=== PATIENT | female | born 2000 | race American Indian/Alaskan Native ===

== ENCOUNTER 2021-12-31 00:14 | Outpatient (CLI) | payer MEDICAID ==
[2021-12-31] MEDS ORDERED: LACTATED RINGERS 500 ML IV ONE (00:35)
[2021-12-31 01:02] VITALS: BP 137/86
[2021-12-31 02:11] LABS: Bacteria,Urine 2+ /HPF (Negative); Bilirubin,Urine NEG (Negative); Blood,Urine NEG (Negative); Color,Urine Yellow (Yellow); Hyaline Casts,Urine 1 /LPF; Mucus,Urine FEW /HPF; Protein,Urine <15 mg/dL mg/dL (Negative); Urobilinogen,Urine < 2.0 mg/dL (<2.0)
--- NOTE | 2021-12-31 03:25 | Ultrasound Report ---
ULTRASOUND OBSTETRIC LIMITED INDICATION / CLINICAL INFORMATION: placenta abruption. Clinical Gestational Age (GA) in weeks, days: 34 weeks 6 days TECHNIQUE: Transabdominal. COMPARISON: None available. FINDINGS: HEART RATE (beats per minute): 149 AMNIOTIC FLUID INDEX (cm) = not measured (normal = 7-24 cm) PRESENTATION: Cephalic. ADDITIONAL FINDINGS: Placenta is fundal in location. No abruption identified. IMPRESSION: 1. Viable IUP in a cephalic presentation. 2. Placenta is unremarkable and without findings to suggest abruption. Signer Name: Corinna Oconnor MD Signed: 12/31/2021 3:21 AM Workstation Name: [id number]
== END 2021-12-31 05:55 | disposition home or self-care (01) ==
LOC: TRG 00:14 → APU 00:18 → TRG 05:55
PROVIDERS: ATTEND Obstetrics & Gynecology
DX: O26.893 Other specified pregnancy related conditions, third trimester (principal); Z3A.34 34 weeks gestation of pregnancy; W10.9XXA Fall (on) (from) unspecified stairs and steps, initial encounter
CPT/HCPCS: 76815; 81001; 87086

== ENCOUNTER 2022-01-17 10:41 | Outpatient (CLI) | payer MEDICAID ==
[2022-01-17 11:29] LABS: Hematocrit 28.3 % (30.3-42.9); Hemoglobin 9.2 gm/dl (10.1-14.3); Mean Corpuscular HGB Conc 33 % (30-34); Mean Corpuscular Volume 81 fl (79-97); Platelet Count 349 K/mm3 (140-440); Red Blood Count 3.47 M/mm3 (3.65-5.03); Red Cell Distribution Width 14.6 % (13.2-15.2)
[2022-01-17 11:31] LABS: Bilirubin,Urine NEG (Negative); Blood,Urine NEG (Negative); Color,Urine Yellow (Yellow); Mucus,Urine FEW /HPF; RBC,Urine < 1.0 /HPF (0.0-6.0); Urobilinogen,Urine < 2.0 mg/dL (<2.0)
[2022-01-17 11:47] LABS: Alanine Aminotransferase 10 units/L (7-56); Uric Acid 3.7 mg/dL (3.5-7.6)
[2022-01-17 12:50] VITALS: BP 145/78
== END 2022-01-17 12:53 | disposition home or self-care (01) ==
LOC: TRG 10:41 → APU 10:42 → TRG 12:53
PROVIDERS: ATTEND Obstetrics & Gynecology
DX: O13.3 Gestational [pregnancy-induced] hypertension without significant proteinuria, third trimester (principal); Z3A.37 37 weeks gestation of pregnancy
CPT/HCPCS: 36415; 59025; 81001; 82565; 83615; 84450; 84460; 84550; 85027; 86592; 86850; 86900; 86901

== ENCOUNTER 2022-01-21 12:11 | Inpatient (IN) | payer MEDICAID ==
[2022-01-21] MEDS ORDERED: ACETAMINOPHEN 325 MG TAB PO PRN (14:54)
[2022-01-21] MEDS ORDERED: NalbUPHINE 10 MG/1 ML INJ IV PRN (14:54)
[2022-01-21] MEDS ORDERED: miSOPROStol 200 MCG TAB PR PRN (14:54)
[2022-01-21] MEDS ORDERED: TERBUTALINE 1 MG/1 ML INJ SUB-Q PRN (14:54)
[2022-01-21] MEDS ORDERED: CARBOPROST TROMETHAMINE 250 MCG/1 ML INJ IM PRN (14:54)
[2022-01-21] MEDS ORDERED: OXYTOCIN 10 UNIT/1 ML INJ IM PRN (14:54)
[2022-01-21] MEDS ORDERED: MINERAL OIL 30 ML ORAL LIQD PO PRN (14:54)
[2022-01-21] MEDS ORDERED: METHYLERGONOVINE MALEATE 0.2 MG/ML VIAL IM PRN (14:54)
[2022-01-21] MEDS ORDERED: ONDANSETRON 4 MG/2 ML INJ IV PRN (14:54)
[2022-01-21] MEDS ORDERED: LOPERAMIDE 2 MG CAP PO PRN (14:54)
[2022-01-21] MEDS ORDERED: LIDOCAINE (2%) 20 MG/1 ML VIAL 20 ML MDV INFILTRATI ONE (14:54)
[2022-01-21] MEDS ORDERED: OXYTOCIN DRIP 30 UNITS/500 ML BAG IV SCH ×2 (15:00)
[2022-01-21 16:33] LABS: Hematocrit 27.5 % (30.3-42.9); Hemoglobin 9.2 gm/dl (10.1-14.3); Mean Corpuscular HGB Conc 33 % (30-34); Mean Corpuscular Volume 82 fl (79-97); Platelet Count 341 K/mm3 (140-440); Red Blood Count 3.35 M/mm3 (3.65-5.03); Red Cell Distribution Width 15.5 % (13.2-15.2)
[2022-01-21 16:49] LABS: Alanine Aminotransferase 6 units/L (7-56); Uric Acid 3.8 mg/dL (3.5-7.6)
[2022-01-21] MEDS ORDERED: DINOPROSTONE 10 MG VAG SUPP VG ONE (17:00)
[2022-01-21 17:04] LABS: Bacteria,Urine 1+ /HPF (Negative); Bilirubin,Urine NEG (Negative); Blood,Urine NEG (Negative); Color,Urine Yellow (Yellow); Mucus,Urine 3+ /HPF; Urobilinogen,Urine < 2.0 mg/dL (<2.0)
[2022-01-21] MEDS ORDERED: MAGNESIUM SULFATE 4 GM/100 ML BAG IV ONE (20:43)
[2022-01-21] MEDS ORDERED: hydrALAZINE 20 MG/1 ML INJ IV PRN (20:49)
[2022-01-21] MEDS: LACTATED RINGERS 1,000 ML IV SCH (21:06)
[2022-01-21] MEDS: MAGNESIUM SULFATE 40GM/1000ML 40 GM/1,000 ML BAG IV SCH (21:50)
[2022-01-22] MEDS: BUTORPHANOL 2 MG/1 ML INJ IV PRN ×2 (00:17→04:03)
[2022-01-22] MEDS: LACTATED RINGERS 1,000 ML IV SCH (09:18)
[2022-01-22] MEDS: fentaNYL 100 MCG/2 ML INJ IV PRN ×2 (15:16→18:40)
[2022-01-22] MEDS: MAGNESIUM SULFATE 40GM/1000ML 40 GM/1,000 ML BAG IV SCH (17:38)
--- NOTE | 2022-01-22 17:50 | History and Physical Report ---
History of Present Illness Date of examination: 01/22/22 Date of admission: 01/21/22 14:54 Chief complaint: Induction of labor History of present illness: 21-year-old G1, P0 at 38+0 weeks who presents for induction of labor secondary to elevated blood pressures and persistent headache consistent with preeclampsia. The patient initiated care in the first trimester her . Her course is complicated by obesity. GBS is negative. Past History Past Medical History: no pertinent history Past Surgical History: no surgical history Social history: single - Obstetrical History Expected Date of Delivery: 02/05/22 Actual Gestation: 38 Week(s) 0 Day(s) : 1 Para: 0 Hx # Term Pregnancies: 0 Number of Pregnancies: 0 Spontaneous Abortions: 0 Induced : 0 Number of Living Children: 0 Medications and Allergies Allergies Allergy/AdvReac Type Severity Reaction Status Date / Time No Known Allergies Allergy Verified 12/31/21 00:34 Home Medications Medication Instructions Recorded Confirmed Last Taken Type Vitamin 1 tab PO DAILY 01/21/22 01/21/22 Unknown History Active Meds: Active Medications Acetaminophen (Acetaminophen 325 Mg Tab) 650 mg PO Q4H PRN PRN Reason: Pain, Mild (1-3) Butorphanol Tartrate (Butorphanol 2 Mg/1 Ml Inj) 2 mg IV Q2H PRN PRN Reason: Pain , Severe (7-10) Last Admin: 01/22/22 04:03 Dose: 2 mg Carboprost Tromethamine (Carboprost Tromethamine 250 Mcg/1 Ml Inj) 250 mcg IM ONCE PRN PRN Reason: Uterine Bleeding Ephedrine Sulfate (Ephedrine Sulfate 50 Mg/1 Ml Inj) 10 mg IV Q2M PRN PRN Reason: Hypotension Fentanyl (Fentanyl 100 Mcg/2 Ml Inj) 100 mcg IV Q2H PRN PRN Reason: Pain,Severe (7-10) LABOR PAIN Last Admin: 01/22/22 15:16 Dose: 100 mcg Hydralazine HCl (Hydralazine 20 Mg/1 Ml Inj) 20 mg IV Q4HR PRN PRN Reason: Blood Pressure Oxytocin/Sodium Chloride (Pitocin/Ns 30 Unit/500ml) 30 units in 500 mls @ 2 mls/hr IV TITR CHELLE; Protocol Last Titration: 01/22/22 17:35 Dose: 6 mls/hr Lactated Ringer's (Lactated Ringers) 1,000 mls @ 125 mls/hr IV DIRECT CHELLE Last Admin: 01/22/22 09:18 Dose: 125 mls/hr Oxytocin/Sodium Chloride (Pitocin/Ns 30 Unit/500ml) 30 units in 500 mls @ 40 mls/hr IV TITR CHELLE; Protocol Magnesium Sulfate (Magnesium Sulfate 40gm/1000ml) 40 gm in 1,000 mls @ 50 mls/hr IV DIRECT CHELLE Last Admin: 01/21/22 21:50 Dose: 2 gm/hr, 50 mls/hr Loperamide HCl (Loperamide 2 Mg Cap) 2 mg PO ONCE PRN PRN Reason: give with Hemabate Methylergonovine Maleate (Methylergonovine Maleate 0.2 Mg/Ml Vial) 0.2 mg IM ONCE PRN PRN Reason: Uterine Bleeding Mineral Oil (Mineral Oil 30 Ml Oral Liqd) 30 ml PO QHS PRN PRN Reason: Constipation Misoprostol (Misoprostol 200 Mcg Tab) 800 mcg HI ONCE PRN PRN Reason: Uterine Bleeding Nalbuphine HCl (Nalbuphine 10 Mg/1 Ml Inj) 10 mg IV Q2H PRN PRN Reason: Pain, Moderate (4-6) Ondansetron HCl (Ondansetron 4 Mg/2 Ml Inj) 4 mg IV Q8H PRN PRN Reason: Nausea And Vomiting Oxytocin (Oxytocin 10 Unit/1 Ml Inj) 10 unit IM ONCE PRN PRN Reason: Uterine Bleeding Terbutaline Sulfate (Terbutaline 1 Mg/1 Ml Inj) 0.25 mg SUB-Q ONCE PRN PRN Reason: Hyperstimulation/Hypertonicity Review of Systems All systems: negative Genitourinary: no leakage of fluid, no contractions - Vital Signs Vital signs: Vital Signs Pulse Pulse Ox 91 H 100 01/21/22 12:52 01/21/22 12:52 Temp Pulse Resp BP Pulse Ox 98.4 F 90 18 154/86 80 L 01/22/22 12:28 01/22/22 17:35 01/22/22 04:08 01/22/22 17:35 01/22/22 17:32 - Physical Exam Breasts: Positive: deferred Cardiovascular: Regular rate Lungs: Positive: Clear to auscultation Abdomen: Positive: normal appearance Results Result Diagrams: 01/21/22 14:40 01/21/22 14:40 All other labs normal. Assessment and Plan - Patient Problems (1) Preeclampsia Current Visit: Yes Status: Acute Plan to address problem: admit for induction of labor
[2022-01-22] MEDS ORDERED: ePHEDrine SULFATE 50 MG/1 ML INJ IV PRN (19:53)
[2022-01-22] MEDS ORDERED: LACTATED RINGERS 250 ML IV SOLN IV ONE (19:53)
[2022-01-22] MEDS ORDERED: diphenhydrAMINE 50 MG/ML VIAL IV PRN (19:53)
[2022-01-22] MEDS ORDERED: ONDANSETRON 4 MG/2 ML INJ IV PRN (19:53)
[2022-01-22] MEDS ORDERED: NalbUPHINE 10 MG/1 ML INJ IV PRN (19:53)
[2022-01-22] MEDS ORDERED: NALOXONE 2 MG/2 ML INJ IV PRN (19:53)
[2022-01-22] MEDS ORDERED: fentaNYL-BUPIV 2 MCG/ML-0.125% 200 MCG/100 ML BAG EPIDURAL SCH (20:00)
--- NOTE | 2022-01-22 20:26 | Anesthesia Consultation ---
Anesthesia Consult and Med Hx Date of service: 01/22/22 - Airway Anesthetic Teeth Evaluation: Good ROM Head & Neck: Adequate Mental/Hyoid Distance: Adequate Mallampati Class: Class III Intubation Access Assessment: Possibly Difficult - Pulmonary Exam CTA: Yes - Cardiac Exam Cardiac Exam: RRR - Pre-Operative Health Status ASA Pre-Surgery Classification: ASA3 Proposed Anesthetic Plan: Epidural - Pulmonary Hx Smoking: No Hx Asthma: No COPD: No Hx Pneumonia: No Hx Sleep Apnea: No - Cardiovascular System Hx Hypertension: Yes (GESTATIONAL) Hx Heart Attack/AMI: No Hx Angina: No - Central Nervous System Hx Seizures: No Hx Psychiatric Problems: No - Gastrointestinal Hx Gastroesophageal Reflux Disease: No - Endocrine Hx Renal Disease: No Hx End Stage Renal Disease: No Hx Liver Disease: No Hx Insulin Dependent Diabetes: No Hx Non-Insulin Dependent Diabetes: No Hx Hypothyroidism: No Hx Hyperthyroidism: No - Hematic Hx Anemia: No Hx Sickle Cell Disease: No - Other Systems Hx Alcohol Use: No Hx Obesity: Yes
--- NOTE | 2022-01-22 20:27 | Progress Note ---
Labor Epidural - Labor Epidural Start Time: 20:05 Stop Time: 20:17 Performed by:: TRAVIS VANG Procedure: Patient is requesting epidural for labor and pain. H&P, labs were reviewed. Patient IDed, H&P reviewed, all questions and concerns were answered, and consent was signed. Timeout was performed at bedside. Patient in sitting position. Sterile prep and drape was performed. 3ml of 1% lidocaine skin wheal at L[3]- L [4]. 17-gauge Tuohy epidural needle was advanced to loss of resistance with air technique 7cm. Negative CSF negative blood. Epidural catheter advanced to [12] centimeters. [negative] Aspiration [negative] test dose. Sterile dressing applied. Patient tolerated procedure.
[2022-01-22] MEDS: ePHEDrine SULFATE 50 MG/1 ML INJ IV PRN ×2 (21:00→21:15)
[2022-01-23] MEDS: LACTATED RINGERS 1,000 ML IV SCH (01:05)
[2022-01-23] MEDS ORDERED: WITCH HAZEL/ GLYCERIN PAD TP PRN (03:02)
[2022-01-23] MEDS ORDERED: LANOLIN/ZINC/DIMETHICONE (LANSINOH) 7 GM TP PRN (03:02)
[2022-01-23] MEDS ORDERED: MAGNESIUM HYDROXIDE (MOM) ORAL LIQD UDC PO PRN (03:02)
[2022-01-23] MEDS ORDERED: ONDANSETRON 4 MG/2 ML INJ IV PRN (03:02)
[2022-01-23] MEDS ORDERED: PROMETHAZINE 25 MG RECT SUPP PR PRN (03:02)
[2022-01-23] MEDS ORDERED: oxyCODONE /ACETAMINOPHEN 5-325MG TAB PO PRN (03:02)
[2022-01-23] MEDS ORDERED: ACETAMINOPHEN 325 MG TAB PO PRN (03:02)
[2022-01-23] MEDS ORDERED: diphenhydrAMINE 25 MG CAP PO PRN (03:02)
[2022-01-23] MEDS ORDERED: PROMETHAZINE 25 MG TAB PO PRN (03:02)
--- NOTE | 2022-01-23 03:02 | Procedure Note ---
OB Delivery Note - Delivery Date of Delivery: 01/23/22 Surgeon: CONRAD VANCE - Vaginal Delivery presentation: vertex Delivery position: OA Intrapartum events: preeclampsia Delivery induction: cervidil Delivery augmentation: pitocin Delivery monitor: external FHT, external uterine Route of delivery: Delivery placenta: spontaneous Delivery cord: nuchal cord Episiotomy: none Delivery laceration: 2nd degree Delivery repair: vicryl Anesthesia: epidural Delivery comments: Amniotomy was performed with evidence of clear fluid. The patient had progressed to complete complete +1. The patient commenced to pushing and delivered a liveborn male with Apgars of 7 and 9 weight 7 pounds 3 ounces. The delivery was performed by the certified nurse manager animal student and attended by myself and her preceptor. After delivery of the head and nuchal cord was manually reduced. The anterior shoulder was delivered in the infant was immediately placed on the patient's abdomen. The infant was stimulated and bulb suction. Cord was clamped and cut and was placed on the warmer for further resuscitation. The placenta delivered spontaneously intact with three- vessel cord. The patient sustained a midline second-degree laceration that was repaired in normal fashion. - A at 1 minute: 7 at 5 minutes: 9 (Weight 7 pounds 3 ounces) Gender: Male
[2022-01-23] MEDS: IBUPROFEN 800 MG TAB PO SCH ×2 (10:29→18:07)
--- NOTE | 2022-01-23 14:24 | Post Anesthesia Evaluation ---
- Post Anesthesia Evaluation Patient Participated: Yes Airway Patent: Yes Stable Respiratory Function: Yes Nausea/Vomiting: No Temp > 96.8F: Yes Pain Manageable: Yes Adequeate Hydration: Yes Anesthesia Complications: No Block Receding Appropriately: Yes Patient on Ventilator: No
[2022-01-23 15:57] LABS: Hematocrit 23.6 % (30.3-42.9); Hemoglobin 7.8 gm/dl (10.1-14.3)
[2022-01-23] MEDS ORDERED: MAGNESIUM SULFATE 40GM/1000ML 40 GM/1,000 ML BAG IV SCH (23:00)
[2022-01-24] MEDS: LACTATED RINGERS 1,000 ML IV SCH (02:12)
[2022-01-24] MEDS: IBUPROFEN 800 MG TAB PO SCH ×2 (02:14→10:17)
--- NOTE | 2022-01-24 08:14 | Discharge Summary ---
Providers - Providers Date of Admission: 01/21/22 14:54 Date of discharge: 01/24/22 (1500) Attending physician: CONRAD VANCE Primary care physician: CONRAD VANCE Hospitalization Reason for admission: active labor Delivery: Episiotomy: none Laceration: 2nd degree (healing as expected) Other procedures: none complications: none Discharge diagnosis: IUP at term delivered, other (anemia) baby: male Condition at discharge: Good Disposition: 01 HOME / SELF CARE / HOMELESS - Discharge Diagnoses (1) Status post normal vaginal delivery Status: Acute (2) Anemia Status: Acute Qualifiers: Anemia type: iron deficiency Comment: Asymptomatic Increase iron rich foods into diet Continue daily oral iron supplements as prescribed (3) Morbid obesity with BMI of 40.0-44.9, adult Status: Acute Plan - Discharge Medications Prescriptions: labetaloL [Labetalol 100mg TAB] 100 mg PO BID 14 Days #28 tablet Ibuprofen [Motrin 800 MG tab] 800 mg PO Q8HR 7 Days #21 tablet - Provider Discharge Summary Activity: routine, no sex for 6 weeks, no heavy lifting 4 weeks, no strenuous exercise Diet: other (Iron rich diet) Instructions: routine Additional instructions: [] Smoking cessation referral if applicable(refer to patient education folder for contact #) [] Refer to [facility] Booklet Call your doctor immediately for: * Fever > 100.5 * Heavy vaginal bleeding ( >1 pad per hour) * Severe persistent headache * Shortness of breath * Reddened, hot, painful area to leg or breast * Drainage or odor from incision. * Keep laceration site clean and dry at all times and follow doctor's instructions regarding bathing/showering * Follow-up in office in 1 week for B/P check - Follow up plan Follow up: CONRAD VANCE MD [Primary Care Provider] - 7 Days
[2022-01-24 17:50] VITALS: BP 139/80
== END 2022-01-24 17:39 | disposition home or self-care (01) | DRG 775 ==
LOC: TRG 12:11 → APU 12:13 → LD 14:54 → TRG 15:09 → OB 01-24 05:09
PROVIDERS: ADMIT Obstetrics & Gynecology; ATTEND Obstetrics & Gynecology
PROC: 10E0XZZ Delivery of Products of Conception, External Approach (ICD-10-PCS; principal; 2022-01-23)
PROC: 0KQM0ZZ Repair Perineum Muscle, Open Approach (ICD-10-PCS; 2022-01-23)
PROC: 3E0R3BZ Introduction of Anesthetic Agent into Spinal Canal, Percutaneous Approach (ICD-10-PCS; 2022-01-23)
PROC: 00HU33Z Insertion of Infusion Device into Spinal Canal, Percutaneous Approach (ICD-10-PCS; 2022-01-23)
PROC: 3E0P7VZ Introduction of Hormone into Female Reproductive, Via Natural or Artificial Opening (ICD-10-PCS; 2022-01-23)
DX: O14.94 Unspecified pre-eclampsia, complicating childbirth (principal); Z3A.38 38 weeks gestation of pregnancy; Z37.0 Single live birth; O70.1 Second degree perineal laceration during delivery; Z20.822 Contact with and (suspected) exposure to COVID-19; O69.81X0 Labor and delivery complicated by cord around neck, without compression, not applicable or unspecified; O99.214 Obesity complicating childbirth; E66.01 Morbid (severe) obesity due to excess calories
CPT/HCPCS: 36415; 59025; 59200; 81001; 82565; 83615; 83735; 84450; 84460; 84550; 85014; 85018; 85027; 86592; 86850; 86900; 86901; 96360; 99211; G0378; J3490; G0463; J0360; J0595; J2590; J3010; J3475; J7120; U0003